=== PATIENT | male | born 1970 | race Caucasian/White ===

== ENCOUNTER 2021-09-13 12:15 | Emergency (ER) | payer BC, OTHER ==
[2021-09-13] MEDS ORDERED: Sodium Chloride 0.9% 10 ML Syringe FLUSH PRN (12:31)
[2021-09-13] MEDS ORDERED: Aspirin 81 MG Tab.Chew PO ONE (12:31)
[2021-09-13] MEDS ORDERED: Ondansetron 4 MG/2 ML SDV IVPUSH ONE (12:32)
[2021-09-13 16:45] VITALS: BP 111/81; PULSE 100
== END 2021-09-13 14:55 | disposition home or self-care (01) ==
LOC: JD.ED 12:15
DX: A08.4 Viral intestinal infection, unspecified (principal); R07.89 Other chest pain; I10 Essential (primary) hypertension; Z79.899 Other long term (current) drug therapy; Z91.041 Radiographic dye allergy status; Z91.013 Allergy to seafood
CPT/HCPCS: 36415; 71045; 80053; 84484; 85025; 85379; 86140; 93005; 96374; 99285; A9270; J2405; J3490